=== PATIENT | female | born 1950 | race African-American/Black ===

== ENCOUNTER 2024-07-26 13:04 | Emergency (ER) | payer OTHER, MEDICAID ==
[~2024-07-26] VITALS: Ht 165.1 cm; Wt 70.0 kg
[2024-07-26 13:12] VITALS: O2SAT 97
[2024-07-26] MEDS: SODIUM CHLORIDE 0.9% (SEPSIS BOLUS) IV ONE (14:20)
[2024-07-26] MEDS: CEFTRIAXONE 1GM/50ML 50 ML IV ONE (14:48)
[2024-07-26 15:14] LABS: BASOPHILS % 0.3 % (0.0-2.0); EOSINOPHILS % 0.2 % (0.0-5.0); HEMATOCRIT. 37.7 % (36.0-48.0); HEMOGLOBIN. 11.9 g/dL (12.0-16.0); LYMPHOCYTES % 9.5 % (20.0-50.0); MEAN CORPUSCULAR HEMOGLOBIN 28.8 pg (28.0-32.0); MEAN CORPUSCULAR HGB CONC 31.5 g/dL (31.0-37.0); MEAN CORPUSCULAR VOLUME 91.2 fL (81.0-99.0); MEAN PLATELET VOLUME 7.4 fl (7.4-10.4); MONOCYTES % 7.5 % (2.0-8.0); NEUTROPHILS % 82.5 % (40.0-76.0); PLATELET 143 x1000/uL (130-400); RED BLOOD CELL COUNT 4.13 mill/uL (4.2-5.4); RED CELL DISTRIBUTION WIDTH 14.2 % (11.6-14.6); WHITE BLOOD COUNT 5.2 x1000/uL (4.5-11.0)
[2024-07-26 15:24] LABS: CHLORIDE 110 mEq/L (98-107); SODIUM 143 mEq/L (136-145)
[2024-07-26 15:26] LABS: PARTIAL THROMBOPLASTIN TIME 25.3 sec (23.4-31.0); PROTHROMBIN TIME 10.9 sec (9.6-11.0)
[2024-07-26 15:27] LABS: CARBON DIOXIDE 24 mEq/L (21-32)
[2024-07-26 15:32] LABS: CREATININE 0.7 mg/dL (0.6-1.0); GLUCOSE 89 mg/dL (70-105); UREA NITROGEN BLOOD 9 mg/dL (9-23)
[2024-07-26 15:33] LABS: ALANINE AMINOTRANSFERASE < 7 IU/L (10-49)
[2024-07-26] MEDS: AZITHROMYCIN 500MG/250ML 250 ML IV ONE (15:33)
[2024-07-26 15:34] LABS: ALBUMIN 3.8 g/dL (3.2-4.8); ASPARTATE AMINOTRANSFERASE 16 IU/L (<34); BILIRUBIN DIRECT 0.2 mg/dL (<=3.0); BILIRUBIN TOTAL 0.6 mg/dL (0.1-1.0); PROTEIN TOTAL 6.7 g/dL (6.0-8.3)
[2024-07-26 15:45] VITALS: TEMP 36.83628
[2024-07-26 15:49] LABS: TROPONIN I HIGH SENSITIVITY < 4 ng/L (3.0-34)
[2024-07-26 15:53] LABS: CLARITY URINE CLEAR (CLEAR); COLOR URINE YELLOW (YELLOW); GLUCOSE URINE NEGATIVE (NEGATIVE); KETONES URINE 1+ (NEGATIVE); LEUKOCYTE ESTERASE URINE 2+ (NEGATIVE); NITRITE URINE NEGATIVE (NEGATIVE); OCCULT BLOOD URINE NEGATIVE (NEGATIVE); PROTEIN URINE NEGATIVE (NEGATIVE); SPECIFIC GRAVITY URINE 1.013 (1.005-1.030)
[2024-07-26 16:15] VITALS: BP 105/72; PULSE 78; RESP 18; O2SAT 96
[2024-07-26 16:21] LABS: BACTERIA URINE 2+; RBC URINE 0-2 /hpf (0-2); SQUAMOUS EPITHELIAL CELL URINE FEW /lpf (RARE/1+)
[2024-07-26] MEDS ORDERED: LEVO750T68 MT (16:53)
== END 2024-07-26 17:05 | disposition left against medical advice (07) ==
LOC: ER 13:19
DX: I95.9 Hypotension, unspecified (principal); N39.0 Urinary tract infection, site not specified; R94.31 Abnormal electrocardiogram [ECG] [EKG]; Z88.0 Allergy status to penicillin; Z86.59 Personal history of other mental and behavioral disorders
CPT/HCPCS: 99285; 96365; 71045; 96361; 96375; 80076; 80048; 81003; 83880; 83605; 83690; 85025; 85610; 85730; 87040; 87086; 84484; 36415; 84145; 93005; J0456; J0696; J7030